=== PATIENT | male | born 1965 | race American Indian/Alaskan Native ===

== ENCOUNTER 2018-10-09 23:40 | Emergency (ER) | payer OTHER ==
[2018-10-10] MEDS ORDERED: NORCO 5/325 PO ONE (01:41)
--- NOTE | 2018-10-10 01:46 | Emergency Department Report ---
HPI - General Chief Complaint: Head Injury Time Seen by Provider: 10/10/18 01:30 - HPI HPI: Room 24 The patient is a 52-year-old male presented with a chief complaint of head injury. The patient states this evening at work when a heavy hinges of a [employer] door fell striking him on the top of his head. The patient states he lost consciousness he believes for several minutes. The patient now complains of pain to the calvarium, retro-orbital regions and base of neck. Patient gives his pain a score of 5/10. Location: Head, neck Duration: Prior to arrival Quality: Pain Severity: 5-6/10 Modifying factors: [see above] Context: [see above] Mode of transportation: [not driving] ED Past Medical Hx - Past Medical History Previous Medical History?: Yes Hx Hypertension: Yes Hx Diabetes: Yes - Surgical History Past Surgical History?: No - Family History Family history: no significant - Social History Smoking Status: Never Smoker Substance Use Type: None (denies illicit drug use) - Medications Home Medications: Home Medications Medication Instructions Recorded Confirmed Last Taken Type HYDROcodone/APAP 5-325 [[place] 1 - 2 each PO Q6HR PRN #10 tablet 10/10/18 Unknown Rx 5/325] Ibuprofen [Motrin 800 MG tab] 800 mg PO Q8HR PRN #20 tablet 10/10/18 Unknown Rx ED Review of Systems ROS: Stated complaint: HEAD INJURY Other details as noted in HPI Constitutional: no symptoms reported Eyes: denies: eye pain ENT: denies: throat pain Respiratory: no symptoms reported Cardiovascular: denies: chest pain Endocrine: no symptoms reported Gastrointestinal: denies: abdominal pain Genitourinary: denies: dysuria Musculoskeletal: arthralgia Neurological: headache Physical Exam - Physical Exam Vital Signs: Vital Signs 10/09/18 23:43 Temperature 98.2 F Pulse Rate 92 H Respiratory 18 Rate Blood Pressure 156/91 O2 Sat by Pulse 98 Oximetry Physical Exam: GENERAL: The patient is well-developed well-nourished male lying on stretcher not appearing to be in acute distress. [] HEENT: Normocephalic. Atraumatic. Extraocular motions are intact. Patient has moist mucous membranes. NECK: Supple. Mild tenderness to palpation proximally C7 level. There is no axial step off CHEST/LUNGS: There is no respiratory distress noted. HEART/CARDIOVASCULAR: Regular. There is no tachycardia. There is no gallop rub or murmur. SKIN: There is no rash. There is no edema. There is no diaphoresis. There are no lacerations seen NEURO: The patient is awake, alert, and oriented. The patient is cooperative. The patient has no focal neurologic deficits. The patient has normal speech. Cranial nerves II through XII grossly intact, no drift MUSCULOSKELETAL: There is tenderness to the base of the neck ED Course Vital Signs 10/09/18 23:43 Temperature 98.2 F Pulse Rate 92 H Respiratory 18 Rate Blood Pressure 156/91 O2 Sat by Pulse 98 Oximetry ED Medical Decision Making - Radiology Data Radiology results: report reviewed (CT head, CT cervical spine), image reviewed (CT head, CT cervical spine) [address] [address] Cat Scan Report Signed Patient: RAJAN ALLEN MR#: [id number] : 1965 Acct:[id number] Age/Sex: 52 / M ADM Date: 10/09/18 Loc: ED Attending Dr: Ordering Physician: DILCIA GASTELUM Date of Service: 10/10/18 Procedure(s): CT head/brain wo con Accession Number(s): [id number] cc: DILCIA GASTELUM PROCEDURE: CT HEAD/BRAIN WO CON TECHNIQUE: Computerized tomography of the head was performed without contrast material. HISTORY: head injury with LOC COMPARISONS: None . FINDINGS: Skull and scalp: Normal . Paranasal sinuses: Normal . Ventricles and subarachnoid spaces: Normal . Cerebrum: No evidence of hemorrhage, acute infarction or mass . Cerebellum and brainstem: No evidence of hemorrhage, acute infarction or mass . Vasculature: Normal . Other: None . ASPECTS: 10 IMPRESSION: Normal Examination . This document is electronically signed by Izabela Krishna DO., Oct 10 2018 04:36:31 AM ET Transcribed By: [facility] Dictated By: IZABELA KRISHNA MD Electronically Authenticated By: IZABELA KRISHNA MD Signed Date/Time: 10/10/18437 DD/ 5 TD/TT: 10/10/[address] [address] Cat Scan Report Signed Patient: RAJAN ALLEN MR#: [id number] : 1965 Acct:[id number] Age/Sex: 52 / M ADM Date: 10/09/18 Loc: ED Attending Dr: Ordering Physician: DILCIA GASTELUM Date of Service: 10/10/18 Procedure(s): CT cervical spine wo con Accession Number(s): [id number] cc: DILCIA GASTELUM PROCEDURE: CT CERVICAL SPINE WO CON TECHNIQUE: Computerized tomography of the cervical spine was performed from the skull base to T1 without contrast material. HISTORY: head injury with LOC COMPARISONS: None . FINDINGS: The alignment is normal. The heights of the vertebral bodies are maintained. There is loss of disc space height at the C5-6 level. Mild spur formation off of the vertebral bodies at the C5-6 level are noted. A slight circumferential bulging discs at the C5-6 level is noted. The spinal canal is adequate at all levels. No acute fracture or dislocation of the cervical spine. C1-2: No significant abnormality . C2-3: No significant abnormality . C3-4: No significant abnormality . C4-5: No significant abnormality . C5-6: Mild circumferential bulging disc with spur formation off of the vertebral segments at this level. The spinal canal is maintained . C6-7: No significant abnormality . C7-T1: No significant abnormality . Fractures: None . Other: No additional findings . IMPRESSION: There is no evidence of an acute fracture or dislocation of the cervical spine. Mild cervical spondylosis and degenerative disc changes as discussed . This document is electronically signed by Izabela Krishna DO., Oct 10 2018 04:38:03 AM ET Transcribed By: [facility] Dictated By: IZABELA KRISHNA MD Electronically Authenticated By: IZABELA KRISHNA MD Signed Date/Time: 10/10/18 0439 DD/ 9 TD/TT: 10/10/18249 - Differential Diagnosis closed head injury, skull fracture, intracranial hemorrhage, cervical fract Critical care attestation.: If time is entered above; I have spent that time in minutes in the direct care of this critically ill patient, excluding procedure time. ED Disposition Clinical Impression: Closed head injury, Acute cervical myofascial strain, Bulging of cervical intervertebral disc Disposition: DC-01 TO HOME OR SELFCARE Is pt being admited?: No Does the pt Need Aspirin: No Condition: Stable Instructions: Muscle Strain (ED) Additional Instructions: Return to the emergency department immediately should you develop worsening symptoms, fever, inability to tolerate food or liquid or any other concerns. Prescriptions: Ibuprofen [Motrin 800 MG tab] 800 mg PO Q8HR PRN #20 tablet PRN Reason: Pain, Moderate (4-6) HYDROcodone/APAP 5-325 [[place] 5/325] 1 - 2 each PO Q6HR PRN #10 tablet PRN Reason: Pain Referrals: [facility] [Primary Care Provider] - 3-5 Days QUINN ABRAMS MD [Staff Physician] - 3-5 Days (Dr. Abrams is an orthopedic surgeon. Please follow up with him for further evaluation) Time of Disposition: 04:48
--- NOTE | 2018-10-10 04:38 | Cat Scan Report ---
PROCEDURE: CT HEAD/BRAIN WO CON TECHNIQUE: Computerized tomography of the head was performed without contrast material. HISTORY: head injury with LOC COMPARISONS: None . FINDINGS: Skull and scalp: Normal . Paranasal sinuses: Normal . Ventricles and subarachnoid spaces: Normal . Cerebrum: No evidence of hemorrhage, acute infarction or mass . Cerebellum and brainstem: No evidence of hemorrhage, acute infarction or mass . Vasculature: Normal . Other: None . ASPECTS: 10 IMPRESSION: Normal Examination . This document is electronically signed by Izabela Krishna DO., Oct 10 2018 04:36:31 AM ET
--- NOTE | 2018-10-10 04:39 | Cat Scan Report ---
PROCEDURE: CT CERVICAL SPINE WO CON TECHNIQUE: Computerized tomography of the cervical spine was performed from the skull base to T1 wit hout contrast material. HISTORY: head injury with LOC COMPARISONS: None . FINDINGS: The alignment is normal. The heights of the vertebral bodies are maintained. There is loss of disc sp lan height at the C5-6 level. Mild spur formation off of the vertebral bodies at the C5-6 level are n oted. A slight circumferential bulging discs at the C5-6 level is noted. The spinal canal is adequate at all levels. No acute fracture or dislocation of the cervical spine. C1-2: No significant abnormality . C2-3: No significant abnormality . C3-4: No significant abnormality . C4-5: No significant abnormality . C5-6: Mild circumferential bulging disc with spur formation off of the vertebral segments at this le precious. The spinal canal is maintained . C6-7: No significant abnormality . C7-T1: No significant abnormality . Fractures: None . Other: No additional findings . IMPRESSION: There is no evidence of an acute fracture or dislocation of the cervical spine. Mild cer vical spondylosis and degenerative disc changes as discussed . This document is electronically signed by Izabela Krishna DO., Oct 10 2018 04:38:03 AM ET
[2018-10-10 05:05] VITALS: BP 164/74
== END 2018-10-10 05:48 | disposition home or self-care (01) ==
LOC: ED 23:40
DX: S16.1XXA Strain of muscle, fascia and tendon at neck level, initial encounter (principal); S09.90XA Unspecified injury of head, initial encounter; E11.9 Type 2 diabetes mellitus without complications; I10 Essential (primary) hypertension; X58.XXXA Exposure to other specified factors, initial encounter; Y93.89 Activity, other specified; Y92.89 Other specified places as the place of occurrence of the external cause; Y99.8 Other external cause status
CPT/HCPCS: 70450; 72125